=== PATIENT | female | born 1965 | race Caucasian/White ===

== ENCOUNTER 2020-11-19 08:56 | Day surgery (SDC) | payer BC, OTHER ==
[2020-11-13 11:22] VITALS: BMI 24.3
[~2020-11-19 08:56] MED LIST: ONDANSETRON 4 MG/2 ML VIAL IVPUSH PRN; oxyCODONE HCL 5 MG TABLET PO PRN
[2020-11-19] MEDS ORDERED: LACTATED RINGERS SOLUTION 1,000 ML IV SCH (09:00)
[2020-11-19] MEDS ORDERED: PROPOFOL 20 ML ONE ×2 (09:12→10:19)
[2020-11-19] MEDS ORDERED: KETOROLAC TROMETHAMINE 30 MG/1 ML VIAL ONE (09:12)
[2020-11-19] MEDS ORDERED: LIDOCAINE HCL/PF 2% SDV 5ML VIAL ONE (09:12)
[2020-11-19] MEDS ORDERED: DEXAMETHASONE SOD PHOSPHATE 4 MG/1 ML VIAL ONE (09:12)
[2020-11-19] MEDS ORDERED: MIDAZOLAM HCL 2 MG/2 ML SINGLE DOSE VIAL ONE ×3 (09:13→09:20)
[2020-11-19] MEDS ORDERED: ROPIVACAINE HCL 0.5% 30ML VIAL ONE (09:18)
[2020-11-19] MEDS ORDERED: ceFAZolin SODIUM 1 GM VIAL ONE (10:19)
[2020-11-19 11:56] VITALS: PULSE 87; TEMP 97.8
[2020-11-19 12:30] VITALS: BP 102/65
== END 2020-11-19 12:25 | disposition home or self-care (01) ==
LOC: FASU 08:56
PROVIDERS: ATTEND Orthopaedic Surgery Hand Surgery
PROC: 0LX80ZZ Transfer Left Hand Tendon, Open Approach (ICD-10-PCS; 2020-11-19)
PROC: 0RG Upper Joints, Fusion (ICD-10-PCS; principal; 2020-11-19 10:20)
DX: M18.12 Unilateral primary osteoarthritis of first carpometacarpal joint, left hand (principal); M25.342 Other instability, left hand